=== PATIENT | male | born 1995 | race Caucasian/White ===

== ENCOUNTER 2021-05-07 08:31 | Emergency (ER) | payer MEDICAID ==
[~2021-05-07] VITALS: Ht 172.7 cm; Wt 72.0 kg
[2021-05-07 09:18] VITALS: BP 110/65
[2021-05-07] MEDS ORDERED: PERTUSS(ACELL),DIPH,TET VAC/PF 0.5 ML SYRINGE IM. ONE (10:30)
[2021-05-07] MEDS ORDERED: CefTRIAXone SODIUM 1 GM/VIAL IM ONE (10:30)
[2021-05-07] MEDS ORDERED: LIDOCAINE/PF 1% 2 ML VIAL IM ONE (10:30)
[2021-05-07] MEDS ORDERED: SULFAMETHOX/TRIMETH DS 800-160 MG/TABLET PO ONE (10:30)
== END 2021-05-07 11:10 | disposition home or self-care (01) ==
LOC: EMS 08:36
DX: L02.416 Cutaneous abscess of left lower limb (principal); L03.116 Cellulitis of left lower limb; F17.210 Nicotine dependence, cigarettes, uncomplicated; F11.90 Opioid use, unspecified, uncomplicated
CPT/HCPCS: 90471; 90715; 96372; 99284; J0696; J3490

== ENCOUNTER 2021-05-13 17:33 | Emergency (ER) | payer MEDICAID ==
[~2021-05-13] VITALS: Ht 172.7 cm; Wt 77.0 kg
[2021-05-13 17:53] VITALS: BP 126/90
[2021-05-13] MEDS ORDERED: BACITRACIN 0.9 GM PACKET OINTMENT TP ONE (18:30)
[2021-05-13] MEDS ORDERED: SULFAMETHOX/TRIMETH DS 800-160 MG/TABLET PO ONE (18:30)
== END 2021-05-13 18:51 | disposition home or self-care (01) ==
LOC: EMS 17:34
DX: L03.115 Cellulitis of right lower limb (principal); L02.415 Cutaneous abscess of right lower limb; F17.210 Nicotine dependence, cigarettes, uncomplicated; F14.90 Cocaine use, unspecified, uncomplicated; Z76.0 Encounter for issue of repeat prescription
CPT/HCPCS: 99283

== ENCOUNTER 2021-09-25 00:15 | Emergency (ER) | payer MEDICAID ==
[~2021-09-25] VITALS: Ht 170.2 cm; Wt 81.8 kg
[2021-09-25] MEDS: LIDOCAINE 1% 10 ML VIAL SQ ONE (01:03)
[2021-09-25] MEDS: BACITRACIN 0.9 GM PACKET OINTMENT TP ONE (01:03)
[2021-09-25] MEDS ORDERED: IBUP-2070 PO (01:12)
[2021-09-25] MEDS ORDERED: DOXY-354 PO (01:12)
[2021-09-25] MEDS: DOXYCYCLINE HYCLATE 100 MG TABLET PO ONE (01:15)
[2021-09-25 01:51] VITALS: BP 119/63
== END 2021-09-25 01:59 | disposition home or self-care (01) ==
LOC: EMS 00:17
DX: S61.213A Laceration without foreign body of left middle finger without damage to nail, initial encounter (principal); F17.210 Nicotine dependence, cigarettes, uncomplicated; F11.90 Opioid use, unspecified, uncomplicated; W26.8XXA Contact with other sharp object(s), not elsewhere classified, initial encounter; Y93.89 Activity, other specified; Y92.89 Other specified places as the place of occurrence of the external cause; Y99.8 Other external cause status
CPT/HCPCS: 12002; 99283; J3490